=== PATIENT | male | born 1945 | race Caucasian/White ===

== ENCOUNTER 2018-03-12 13:00 | Inpatient (IN) | payer MEDICARE ==
[2018-03-11 11:44] LABS: BASOPHILS % (AUTO) 0.5 % (0-1); EOSINOPHILS # (AUTO) 0.1 X10'3 (0-0.9); EOSINOPHILS % (AUTO) 1.4 % (0-6); LYMPHOCYTES # (AUTO) 0.9 X10'3 (1.1-4.8); LYMPHOCYTES % (AUTO) 11.3 % (21-51); MEAN CORPUSCULAR HEMOGLOBIN 29.6 PG (27.0-31.0); MEAN CORPUSCULAR HGB CONC 33.7 % (33.0-36.5); MEAN CORPUSCULAR VOLUME 87.9 FL (78-98); MEAN PLATELET VOLUME 8.3 FL (7.4-10.4); MONOCYTES # (AUTO) 0.4 X10'3 (0-0.9); NEUTROPHILS # (AUTO) 6.7 X10'3 (1.8-7.7); NEUTROPHILS % (AUTO) 81.8 % (42-75); PRE OP HEMATOCRIT 43.1 % (42.0-52.0); PRE OP HEMOGLOBIN 14.5 g/dL (14.0-17.9); PRE OP PLATELET COUNT 299 X10'3 (140-440); RED BLOOD COUNT 4.91 X10'6 (4.70-6.10); RED CELL DISTRIBUTION WIDTH 15.8 % (11.5-14.5)
[2018-03-11 11:47] LABS: PRE OP INR 0.9 INR; PRE OP PROTIME 9.6 SECONDS (9.0-12.0)
[2018-03-11 11:52] LABS: ALKALINE PHOSPHATASE 67 IU/L (46-116); BLOOD UREA NITROGEN 19 MG/DL (7-18); BUN/CREATININE RATIO 17.1 (5.4-32.0); CALCIUM 8.8 MG/DL (8.5-10.1); CHLORIDE 106 MMOL/L (99-107); CREATININE 1.11 MG/DL (0.60-1.10); PRE OP ALT 20 U/L (30-65); PRE OP ANION GAP 12 (8-16); PRE OP AST 23 U/L (10-37); PRE OP BILIRUB, TOTAL 0.4 MG/DL (0.0-1.0); PRE OP GLUCOSE 104 MG/DL (70-104); PRE OP SODIUM 141 MMOL/L (135-145); TOTAL CARBON DIOXIDE 23.5 MMOL/L (24-32); TOTAL PROTEIN 8.1 G/DL (6.4-8.2); eGFR 65 ML/MIN
[~2018-03-12] VITALS: Ht 172.7 cm; Wt 64.2 kg
[~2018-03-12 13:00] MED LIST: ALBU8.5H8 IH; AMLO10TA PO; CHOL100044 PO; FEXO180T94 PO; LISI-600 PO; NAPR220C15 PO
[2018-03-14] VITALS (25 sets, daily range): BP systolic 80–139; BP diastolic 39–93
[2018-03-14] MEDS ORDERED: ceFAZolin 2gm in dextrose, iso 100 ML IV ONE (05:00)
[2018-03-14] MEDS ORDERED: ringers solution, lacted 1,000 ML IV SCH ×2 (05:00→10:40)
[2018-03-14] MEDS ORDERED: famotidine 20mg tablet PO ONE (05:30)
[2018-03-14] MEDS ORDERED: albuterol 2.5 MG/3 ML nebule NEB ONE (05:30)
[2018-03-14] MEDS ORDERED: LIDOcaine 1% (10mg/ml) 2ml vial ONE (05:53)
[2018-03-14] MEDS ORDERED: ROPIVAcaine 0.5% (5mg/ml) 30ml vial ONE (07:20)
[2018-03-14] MEDS ORDERED: fentaNYL /PF 50mcg/ml 5ml ampule ONE (07:23)
[2018-03-14] MEDS ORDERED: MIDAZolam 5mg/5ml vial ONE (07:23)
[2018-03-14] MEDS ORDERED: propofol inj 20 ML IV ONE (07:24)
[2018-03-14] MEDS ORDERED: rocuronium 10mg/ml inj IV ONE (07:24)
[2018-03-14] MEDS ORDERED: neostigmine methylsulfate 1 MG/ML 10ml vial ONE (07:43)
[2018-03-14] MEDS ORDERED: glycopyrrolate 0.2mg/ml inj ONE (07:43)
[2018-03-14] MEDS ORDERED: sevoflurane 250ml liquid IH ONE (07:43)
[2018-03-14] MEDS ORDERED: morphine sulfate /PF 0.5 MG/ML 10mL ampul ONE (09:26)
[2018-03-14] MEDS ORDERED: meperidine/PF 25mg/ml syringe IV PRN ×3 (10:40)
[2018-03-14] MEDS ORDERED: ondansetron/PF 4mg/2ml inj IV PRN (10:40)
[2018-03-14] MEDS ORDERED: morphine 4 MG/ML inj SYRINge IV PRN ×4 (10:40→10:50)
[2018-03-14] MEDS ORDERED: morphine/PF injection 20 MG, BUPIVAcaine 0.5% inj/PF 250 MG in normal saline 250ml IV s... EPI SCH (10:42)
[2018-03-14] MEDS ORDERED: naloxone 2mg/2ml inj 2 MG in normal saline 500ml IV soln 500 ML IV PRN (10:42)
[2018-03-14] MEDS ORDERED: CADD PCA waste documentation MC PRN (10:50)
[2018-03-14] MEDS ORDERED: metoclopramide 5 mg/ml inj IV PRN (10:50)
[2018-03-14] MEDS ORDERED: naloxone 0.4 mg/ml inj IV PRN (10:50)
[2018-03-14] MEDS ORDERED: ketorolac tromethamine 15mg/ml inj. IV PRN (10:50)
[2018-03-14 11:10] LABS: ABG BASE EXCESS -6.1 mmol/L (-2.0-3.0); ABG HCO3 19.3 mmol/L (22.0-26.0); ABG OXYGEN SATURATION 96.8 % (95-98); ABG PCO2 (T) 35.3 mmHg (35.0-48.0); ABG PH (T) 7.348 (7.350-7.450); ABG PO2 (T) 86.9 mmHg (83-108); FCOHb 0.3 % (0.5-1.5); FLOW 28 L/min; FMetHb 0.4 % (0.3-1.12); FO2Hb 96.1 % (94-100); PATIENT TEMPERATURE 35.3; TOTAL HEMOGLOBIN 13.5 G/dl (14.0-18.0)
[2018-03-14] MEDS: MORPHINE EPI SCH ×2 (11:18→12:26)
[2018-03-14] MEDS: [UNRECOGNIZED DRUG - OTHER] EPI SCH ×2 (11:18→12:26)
[2018-03-14] MEDS: BUPIVACAINE EPI SCH ×2 (11:18→12:26)
[2018-03-14] MEDS: NORepinephrine 8mg/ 250ml NS 250 ML IV SCH (11:51)
[2018-03-14] MEDS ORDERED: non-formulary drug (Albuterol Sulfate (Proair Hfa) 2 PUFFS) IH PRN (13:10)
[2018-03-14] MEDS: potassium Cl 20mEq in D5-NS 1,000 ML IV SCH (14:52)
[2018-03-14] MEDS ORDERED: magnesium 4gm in 100ml NS 100 ML IV ONE (14:55)
[2018-03-14] MEDS: ceFAZolin 1GM/D5W- ADD-VANTAGE 50 ML IV SCH (15:37)
[2018-03-14] MEDS ORDERED: CEFAZOLIN IV SCH (16:00)
[2018-03-14] MEDS ORDERED: D5W IV SCH (16:00)
[2018-03-14] MEDS ORDERED: DEXTROSE 5% IV SCH (16:00)
[2018-03-14] MEDS ORDERED: WATER IV SCH (16:00)
[2018-03-14] MEDS: ondansetron/PF 4mg/2ml inj IV PRN (18:35)
[2018-03-14] MEDS: albuterol 2.5 MG/3 ML nebule NEB PRN (22:45)
[2018-03-15] VITALS (24 sets, daily range): BP systolic 94–153; BP diastolic 59–78
[2018-03-15] MEDS: ceFAZolin 1GM/D5W- ADD-VANTAGE 50 ML IV SCH ×4 (01:10→23:48)
[2018-03-15 03:02] LABS: BASOPHILS % (AUTO) 0.1 % (0-1); EOSINOPHILS % (AUTO) 0 % (0-6); HEMATOCRIT 37.6 % (42.0-52.0); HEMOGLOBIN 12.5 g/dl (14.0-17.9); LYMPHOCYTES # (AUTO) 0.5 X10'3 (1.1-4.8); LYMPHOCYTES % (AUTO) 2.3 % (21-51); MEAN CORPUSCULAR HEMOGLOBIN 29.6 PG (27.0-31.0); MEAN CORPUSCULAR HGB CONC 33.2 % (33.0-36.5); MEAN CORPUSCULAR VOLUME 89.2 FL (78-98); MEAN PLATELET VOLUME 8.2 FL (7.4-10.4); MONOCYTES # (AUTO) 1.3 X10'3 (0-0.9); MONOCYTES % (AUTO) 5.6 % (2-12); NEUTROPHILS # (AUTO) 20.7 X10'3 (1.8-7.7); PLATELET COUNT 274 X10'3 (140-440); RED BLOOD COUNT 4.22 X10'6 (4.70-6.10); RED CELL DISTRIBUTION WIDTH 14.6 % (11.5-14.5); WHITE BLOOD COUNT 22.5 X10'3 (4.5-11.0)
[2018-03-15 03:32] LABS: ALANINE AMINOTRANSFERASE 16 U/L (12-78); ALBUMIN/GLOBULIN RATIO 0.9 (1.1-1.5); ALKALINE PHOSPHATASE 50 IU/L (46-116); ANION GAP 8 (8-16); ASPARTATE AMINO TRANSFERASE 30 U/L (10-37); BILIRUBIN,TOTAL 0.3 MG/DL (0.1-1.0); BLOOD UREA NITROGEN 22 MG/DL (7-18); BUN/CREATININE RATIO 18.8 (5.4-32.0); CALCIUM 8.3 MG/DL (8.5-10.1); CHLORIDE 108 MMOL/L (99-107); CREATININE 1.17 MG/DL (0.60-1.10); GLUCOSE 157 MG/DL (70-104); POTASSIUM 4.6 MMOL/L (3.5-5.1); SODIUM 139 MMOL/L (135-145); TOTAL CARBON DIOXIDE 22.8 MMOL/L (24-32); TOTAL PROTEIN 6.5 G/DL (6.4-8.2); eGFR 61 ML/MIN
[2018-03-15] MEDS: potassium Cl 20mEq in D5-NS 1,000 ML IV SCH ×2 (03:43→14:02)
[2018-03-15] MEDS: ondansetron/PF 4mg/2ml inj IV PRN ×2 (06:14→14:02)
[2018-03-15] MEDS: MORPHINE EPI SCH ×3 (07:22→14:04)
[2018-03-15] MEDS: [UNRECOGNIZED DRUG - OTHER] EPI SCH (07:22)
[2018-03-15] MEDS: BUPIVACAINE EPI SCH (07:22)
[2018-03-15] MEDS: albuterol 2.5 MG/3 ML nebule NEB PRN (08:18)
[2018-03-15] MEDS: metoclopramide 5 mg/ml inj IV SCH ×3 (08:35→20:10)
[2018-03-15] MEDS: magnesium oxide 400mg tablet PO SCH ×2 (08:35→20:10)
[2018-03-15] MEDS: NORMAL SALINE EPI SCH ×2 (10:38→14:04)
[2018-03-15] MEDS: NORepinephrine 8mg/ 250ml NS 250 ML IV SCH (14:10)
[2018-03-15] MEDS: albuterol 2.5 MG/3 ML nebule NEB SCH ×3 (16:36→23:27)
[2018-03-15] MEDS: lactobacillus rhamnosus 10,000 MMU CELLS/CAPSULE PO SCH (20:11)
[2018-03-16] VITALS (24 sets, daily range): BP systolic 106–165; BP diastolic 67–97
[2018-03-16] MEDS: metoclopramide 5 mg/ml inj IV SCH ×4 (01:54→20:10)
[2018-03-16 02:44] LABS: BASOPHILS % (AUTO) 0 % (0-1); EOSINOPHILS # (AUTO) 0.3 X10'3 (0-0.9); EOSINOPHILS % (AUTO) 1.6 % (0-6); HEMATOCRIT 32.5 % (42.0-52.0); HEMOGLOBIN 10.8 g/dl (14.0-17.9); LYMPHOCYTES % (AUTO) 4.9 % (21-51); MEAN CORPUSCULAR HEMOGLOBIN 29.8 PG (27.0-31.0); MEAN CORPUSCULAR HGB CONC 33.3 % (33.0-36.5); MEAN CORPUSCULAR VOLUME 89.7 FL (78-98); MEAN PLATELET VOLUME 8.3 FL (7.4-10.4); MONOCYTES # (AUTO) 1.4 X10'3 (0-0.9); MONOCYTES % (AUTO) 6.5 % (2-12); NEUTROPHILS # (AUTO) 18.1 X10'3 (1.8-7.7); PLATELET COUNT 242 X10'3 (140-440); RED BLOOD COUNT 3.62 X10'6 (4.70-6.10); RED CELL DISTRIBUTION WIDTH 15.7 % (11.5-14.5); WHITE BLOOD COUNT 20.9 X10'3 (4.5-11.0)
[2018-03-16 03:02] LABS: ALANINE AMINOTRANSFERASE 15 U/L (12-78); ALBUMIN 2.6 G/DL (3.4-5.0); ALBUMIN/GLOBULIN RATIO 0.7 (1.1-1.5); ALKALINE PHOSPHATASE 46 IU/L (46-116); ANION GAP 7 (8-16); ASPARTATE AMINO TRANSFERASE 34 U/L (10-37); BILIRUBIN,TOTAL 0.2 MG/DL (0.1-1.0); BLOOD UREA NITROGEN 25 MG/DL (7-18); BUN/CREATININE RATIO 21.6 (5.4-32.0); CALCIUM 8.1 MG/DL (8.5-10.1); CHLORIDE 109 MMOL/L (99-107); CREATININE 1.16 MG/DL (0.60-1.10); GLUCOSE 108 MG/DL (70-104); POTASSIUM 4.2 MMOL/L (3.5-5.1); SODIUM 140 MMOL/L (135-145); TOTAL CARBON DIOXIDE 24.2 MMOL/L (24-32); TOTAL PROTEIN 6.1 G/DL (6.4-8.2); eGFR 62 ML/MIN
[2018-03-16] MEDS: albuterol 2.5 MG/3 ML nebule NEB SCH ×6 (03:53→23:18)
[2018-03-16] MEDS: magnesium oxide 400mg tablet PO SCH ×2 (08:27→20:10)
[2018-03-16] MEDS: lactobacillus rhamnosus 10,000 MMU CELLS/CAPSULE PO SCH ×2 (08:27→20:10)
[2018-03-16] MEDS: ceFAZolin 1GM/D5W- ADD-VANTAGE 50 ML IV SCH ×3 (08:27→23:52)
[2018-03-16] MEDS: potassium Cl 20mEq in D5-NS 1,000 ML IV SCH ×2 (10:04→11:53)
[2018-03-16] MEDS ORDERED: amiodarone 150mg/dext, iso-os 100 ML IV ONE (11:35)
[2018-03-16] MEDS: amiodarone/D5 360MG/200ML BAG 200 ML IV SCH ×3 (11:55→23:43)
[2018-03-16] MEDS: NORepinephrine 8mg/ 250ml NS 250 ML IV SCH (16:50)
[2018-03-17] VITALS (23 sets, daily range): BP systolic 119–172; BP diastolic 76–102
[2018-03-17] MEDS: metoclopramide 5 mg/ml inj IV SCH ×4 (02:11→19:53)
[2018-03-17 02:55] LABS: BASOPHILS % (AUTO) 0.1 % (0-1); EOSINOPHILS # (AUTO) 0.1 X10'3 (0-0.9); EOSINOPHILS % (AUTO) 0.9 % (0-6); HEMATOCRIT 31.9 % (42.0-52.0); HEMOGLOBIN 10.9 g/dl (14.0-17.9); LYMPHOCYTES # (AUTO) 0.8 X10'3 (1.1-4.8); LYMPHOCYTES % (AUTO) 4.8 % (21-51); MEAN CORPUSCULAR HEMOGLOBIN 30.1 PG (27.0-31.0); MEAN CORPUSCULAR HGB CONC 34.2 % (33.0-36.5); MEAN CORPUSCULAR VOLUME 88.1 FL (78-98); MEAN PLATELET VOLUME 8.4 FL (7.4-10.4); MONOCYTES # (AUTO) 1.4 X10'3 (0-0.9); MONOCYTES % (AUTO) 8.5 % (2-12); NEUTROPHILS # (AUTO) 14.1 X10'3 (1.8-7.7); NEUTROPHILS % (AUTO) 85.7 % (42-75); PLATELET COUNT 233 X10'3 (140-440); RED BLOOD COUNT 3.62 X10'6 (4.70-6.10); RED CELL DISTRIBUTION WIDTH 15.5 % (11.5-14.5); WHITE BLOOD COUNT 16.4 X10'3 (4.5-11.0)
[2018-03-17 03:10] LABS: ALANINE AMINOTRANSFERASE 14 U/L (12-78); ALBUMIN 2.4 G/DL (3.4-5.0); ALBUMIN/GLOBULIN RATIO 0.6 (1.1-1.5); ALKALINE PHOSPHATASE 49 IU/L (46-116); ANION GAP 10 (8-16); ASPARTATE AMINO TRANSFERASE 32 U/L (10-37); BILIRUBIN,TOTAL 0.3 MG/DL (0.1-1.0); BLOOD UREA NITROGEN 15 MG/DL (7-18); BUN/CREATININE RATIO 15.3 (5.4-32.0); CALCIUM 8.1 MG/DL (8.5-10.1); CHLORIDE 104 MMOL/L (99-107); CREATININE 0.98 MG/DL (0.60-1.10); GLUCOSE 108 MG/DL (70-104); POTASSIUM 3.5 MMOL/L (3.5-5.1); SODIUM 138 MMOL/L (135-145); TOTAL CARBON DIOXIDE 24.4 MMOL/L (24-32); TOTAL PROTEIN 6.1 G/DL (6.4-8.2); eGFR 75 ML/MIN
[2018-03-17] MEDS: albuterol 2.5 MG/3 ML nebule NEB SCH ×6 (03:11→23:31)
[2018-03-17] MEDS: amiodarone/D5 360MG/200ML BAG 200 ML IV SCH ×4 (05:25→22:59)
[2018-03-17] MEDS: MORPHINE EPI SCH (06:13)
[2018-03-17] MEDS: NORMAL SALINE EPI SCH (06:13)
[2018-03-17] MEDS: ceFAZolin 1GM/D5W- ADD-VANTAGE 50 ML IV SCH ×2 (07:43→16:04)
[2018-03-17] MEDS: lactobacillus rhamnosus 10,000 MMU CELLS/CAPSULE PO SCH ×2 (07:46→19:52)
[2018-03-17] MEDS: magnesium oxide 400mg tablet PO SCH ×2 (07:46→19:52)
[2018-03-17] MEDS ORDERED: acetaminophen 325mg tablet PO PRN (11:55)
[2018-03-17] MEDS: Protein Shake (high protein) 240ml (8oz) cup PO SCH ×2 (13:00→18:00)
[2018-03-17] MEDS: HYDROcodone/acetaminophen 10/325mg tab PO PRN ×2 (13:42→19:54)
[2018-03-17] MEDS: amiodarone 200mg tablet PO SCH ×2 (14:56→19:53)
[2018-03-17] MEDS: NORepinephrine 8mg/ 250ml NS 250 ML IV SCH (19:30)
[2018-03-18] VITALS (25 sets, daily range): BP systolic 108–186; BP diastolic 79–111
[2018-03-18] MEDS: ceFAZolin 1GM/D5W- ADD-VANTAGE 50 ML IV SCH ×2 (00:08→07:38)
[2018-03-18] MEDS: metoclopramide 5 mg/ml inj IV SCH ×4 (02:30→21:07)
[2018-03-18] MEDS: HYDROcodone/acetaminophen 10/325mg tab PO PRN ×3 (02:41→18:34)
[2018-03-18] MEDS: potassium Cl 20mEq in D5-NS 1,000 ML IV SCH (02:41)
[2018-03-18 03:16] LABS: BASOPHILS % (AUTO) 0.1 % (0-1); EOSINOPHILS # (AUTO) 0.2 X10'3 (0-0.9); EOSINOPHILS % (AUTO) 1.2 % (0-6); HEMATOCRIT 29.3 % (42.0-52.0); HEMOGLOBIN 9.8 g/dl (14.0-17.9); LYMPHOCYTES # (AUTO) 1.1 X10'3 (1.1-4.8); LYMPHOCYTES % (AUTO) 7.9 % (21-51); MEAN CORPUSCULAR HEMOGLOBIN 29.5 PG (27.0-31.0); MEAN CORPUSCULAR HGB CONC 33.4 % (33.0-36.5); MEAN CORPUSCULAR VOLUME 88.4 FL (78-98); MEAN PLATELET VOLUME 8.4 FL (7.4-10.4); MONOCYTES # (AUTO) 1.3 X10'3 (0-0.9); MONOCYTES % (AUTO) 9.8 % (2-12); NEUTROPHILS # (AUTO) 10.9 X10'3 (1.8-7.7); PLATELET COUNT 236 X10'3 (140-440); RED BLOOD COUNT 3.31 X10'6 (4.70-6.10); RED CELL DISTRIBUTION WIDTH 15.4 % (11.5-14.5); WHITE BLOOD COUNT 13.4 X10'3 (4.5-11.0)
[2018-03-18 03:40] LABS: ALANINE AMINOTRANSFERASE 13 U/L (12-78); ALBUMIN 2.1 G/DL (3.4-5.0); ALBUMIN/GLOBULIN RATIO 0.6 (1.1-1.5); ALKALINE PHOSPHATASE 49 IU/L (46-116); ANION GAP 9 (8-16); ASPARTATE AMINO TRANSFERASE 28 U/L (10-37); BILIRUBIN,TOTAL 0.4 MG/DL (0.1-1.0); BLOOD UREA NITROGEN 11 MG/DL (7-18); CALCIUM 7.8 MG/DL (8.5-10.1); CHLORIDE 105 MMOL/L (99-107); GLUCOSE 105 MG/DL (70-104); POTASSIUM 3.6 MMOL/L (3.5-5.1); SODIUM 139 MMOL/L (135-145); TOTAL CARBON DIOXIDE 24.9 MMOL/L (24-32); TOTAL PROTEIN 5.8 G/DL (6.4-8.2); eGFR 74 ML/MIN
[2018-03-18] MEDS: albuterol 2.5 MG/3 ML nebule NEB SCH ×5 (03:51→19:41)
[2018-03-18] MEDS: amiodarone 200mg tablet PO SCH ×2 (07:25→20:00)
[2018-03-18] MEDS: lactobacillus rhamnosus 10,000 MMU CELLS/CAPSULE PO SCH ×2 (07:38→21:07)
[2018-03-18] MEDS: magnesium oxide 400mg tablet PO SCH ×2 (07:38→21:08)
[2018-03-18] MEDS: Protein Shake (high protein) 240ml (8oz) cup PO SCH ×3 (08:00→18:31)
[2018-03-18] MEDS: amiodarone/D5 360MG/200ML BAG 200 ML IV SCH ×3 (09:59→22:20)
[2018-03-18] MEDS ORDERED: amiodarone/D5 360MG/200ML BAG 200 ML IV SCH (14:00)
[2018-03-18] MEDS ORDERED: potassium Cl 20mEq/100mL bag 100 ML IV PRN (16:00)
[2018-03-18] MEDS ORDERED: magnesium 4gm in 100ml NS 100 ML IV PRN (16:00)
[2018-03-18] MEDS: potassium Cl 20mEq/100mL bag 100 ML IV PRN (16:24)
[2018-03-18] MEDS: ondansetron/PF 4mg/2ml inj IV PRN (21:08)
[2018-03-19] VITALS (16 sets, daily range): BP systolic 108–166; BP diastolic 71–95
[2018-03-19] MEDS: albuterol 2.5 MG/3 ML nebule NEB SCH ×7 (00:02→23:32)
[2018-03-19] MEDS: HYDROcodone/acetaminophen 10/325mg tab PO PRN ×5 (00:59→20:50)
[2018-03-19] MEDS: metoclopramide 5 mg/ml inj IV SCH ×4 (02:12→20:48)
[2018-03-19 03:27] LABS: BASOPHILS % (AUTO) 0.2 % (0-1); EOSINOPHILS # (AUTO) 0.1 X10'3 (0-0.9); EOSINOPHILS % (AUTO) 0.5 % (0-6); HEMATOCRIT 28.7 % (42.0-52.0); HEMOGLOBIN 9.7 g/dl (14.0-17.9); LYMPHOCYTES # (AUTO) 0.8 X10'3 (1.1-4.8); LYMPHOCYTES % (AUTO) 5.4 % (21-51); MEAN CORPUSCULAR HEMOGLOBIN 29.7 PG (27.0-31.0); MEAN CORPUSCULAR HGB CONC 33.6 % (33.0-36.5); MEAN CORPUSCULAR VOLUME 88.2 FL (78-98); MEAN PLATELET VOLUME 8.4 FL (7.4-10.4); MONOCYTES # (AUTO) 1.1 X10'3 (0-0.9); MONOCYTES % (AUTO) 7.2 % (2-12); NEUTROPHILS # (AUTO) 13.3 X10'3 (1.8-7.7); NEUTROPHILS % (AUTO) 86.7 % (42-75); PLATELET COUNT 269 X10'3 (140-440); RED BLOOD COUNT 3.26 X10'6 (4.70-6.10); RED CELL DISTRIBUTION WIDTH 15.2 % (11.5-14.5); WHITE BLOOD COUNT 15.3 X10'3 (4.5-11.0)
[2018-03-19 03:39] LABS: ALANINE AMINOTRANSFERASE 14 U/L (12-78); ALBUMIN 1.9 G/DL (3.4-5.0); ALBUMIN/GLOBULIN RATIO 0.5 (1.1-1.5); ALKALINE PHOSPHATASE 62 IU/L (46-116); ANION GAP 7 (8-16); ASPARTATE AMINO TRANSFERASE 25 U/L (10-37); BILIRUBIN,TOTAL 0.4 MG/DL (0.1-1.0); BLOOD UREA NITROGEN 10 MG/DL (7-18); BUN/CREATININE RATIO 10.3 (5.4-32.0); CALCIUM 8.5 MG/DL (8.5-10.1); CHLORIDE 101 MMOL/L (99-107); CREATININE 0.97 MG/DL (0.60-1.10); GLUCOSE 116 MG/DL (70-104); MAGNESIUM 3.4 MG/DL (1.5-2.4); POTASSIUM 3.5 MMOL/L (3.5-5.1); SODIUM 135 MMOL/L (135-145); TOTAL CARBON DIOXIDE 27.1 MMOL/L (24-32); TOTAL PROTEIN 5.8 G/DL (6.4-8.2); eGFR 76 ML/MIN
[2018-03-19] MEDS: potassium Cl 20mEq/100mL bag 100 ML IV PRN ×3 (03:51→15:22)
[2018-03-19] MEDS: potassium Cl 20mEq in D5-NS 1,000 ML IV SCH (03:51)
[2018-03-19] MEDS: amiodarone/D5 360MG/200ML BAG 200 ML IV SCH ×3 (04:26→12:23)
[2018-03-19] MEDS: lactobacillus rhamnosus 10,000 MMU CELLS/CAPSULE PO SCH ×2 (07:59→20:47)
[2018-03-19] MEDS: magnesium oxide 400mg tablet PO SCH ×2 (07:59→20:00)
[2018-03-19] MEDS: Protein Shake (high protein) 240ml (8oz) cup PO SCH ×3 (08:00→18:00)
[2018-03-19] MEDS: amiodarone 200mg tablet PO SCH ×2 (13:33→20:48)
[2018-03-19] MEDS: magnesium hydroxide 30ml (MOM) UD suspension PO SCH ×2 (13:33→20:49)
[2018-03-20] VITALS (23 sets, daily range): BP systolic 104–174; BP diastolic 61–94
[2018-03-20] MEDS: HYDROcodone/acetaminophen 10/325mg tab PO PRN ×5 (02:54→23:27)
[2018-03-20] MEDS: metoclopramide 5 mg/ml inj IV SCH ×4 (02:54→19:36)
[2018-03-20] MEDS: albuterol 2.5 MG/3 ML nebule NEB SCH ×6 (03:33→23:20)
[2018-03-20] MEDS: amiodarone 200mg tablet PO SCH ×2 (07:32→19:34)
[2018-03-20] MEDS: magnesium oxide 400mg tablet PO SCH ×2 (07:32→19:35)
[2018-03-20] MEDS: lactobacillus rhamnosus 10,000 MMU CELLS/CAPSULE PO SCH ×2 (07:32→19:35)
[2018-03-20] MEDS: magnesium hydroxide 30ml (MOM) UD suspension PO SCH ×2 (07:32→19:36)
[2018-03-20] MEDS: enoxaparin 40mg/0.4ml syringe SUBCUT SCH (07:33)
[2018-03-20] MEDS: Protein Shake (high protein) 240ml (8oz) cup PO SCH ×3 (07:34→18:00)
[2018-03-20] MEDS: ondansetron/PF 4mg/2ml inj IV PRN (11:03)
[2018-03-20] MEDS ORDERED: amiodarone 150mg/dext, iso-os 100 ML IV ONE (20:15)
[2018-03-20] MEDS: amiodarone/D5 360MG/200ML BAG 200 ML IV SCH (21:14)
[2018-03-21] VITALS (23 sets, daily range): BP systolic 99–162; BP diastolic 63–97
[2018-03-21] MEDS: HYDROcodone/acetaminophen 10/325mg tab PO PRN ×5 (03:17→23:56)
[2018-03-21] MEDS: metoclopramide 5 mg/ml inj IV SCH ×4 (03:17→19:54)
[2018-03-21] MEDS: amiodarone/D5 360MG/200ML BAG 200 ML IV SCH ×4 (03:35→20:31)
[2018-03-21] MEDS: albuterol 2.5 MG/3 ML nebule NEB SCH ×6 (04:06→23:38)
[2018-03-21] MEDS: lactobacillus rhamnosus 10,000 MMU CELLS/CAPSULE PO SCH ×2 (07:17→19:54)
[2018-03-21] MEDS: amiodarone 200mg tablet PO SCH ×2 (07:17→19:54)
[2018-03-21] MEDS: magnesium oxide 400mg tablet PO SCH ×2 (07:17→19:55)
[2018-03-21] MEDS: magnesium hydroxide 30ml (MOM) UD suspension PO SCH ×3 (07:23→19:57)
[2018-03-21] MEDS: enoxaparin 40mg/0.4ml syringe SUBCUT SCH (08:00)
[2018-03-21] MEDS: Protein Shake (high protein) 240ml (8oz) cup PO SCH ×4 (08:00→19:54)
[2018-03-21] MEDS: diltiazem 30mg tablet PO SCH ×3 (10:27→19:54)
[2018-03-22] VITALS (20 sets, daily range): BP systolic 110–154; BP diastolic 61–90
[2018-03-22] MEDS: diltiazem 30mg tablet PO SCH ×4 (02:12→21:37)
[2018-03-22] MEDS: metoclopramide 5 mg/ml inj IV SCH ×4 (02:12→21:26)
[2018-03-22] MEDS: amiodarone/D5 360MG/200ML BAG 200 ML IV SCH (02:16)
[2018-03-22] MEDS: albuterol 2.5 MG/3 ML nebule NEB SCH ×6 (04:01→23:12)
[2018-03-22 05:35] LABS: BASOPHILS % (AUTO) 0 % (0-1); EOSINOPHILS # (AUTO) 0.5 X10'3 (0-0.9); EOSINOPHILS % (AUTO) 2.3 % (0-6); HEMATOCRIT 31.2 % (42.0-52.0); HEMOGLOBIN 10.5 g/dl (14.0-17.9); LYMPHOCYTES # (AUTO) 0.8 X10'3 (1.1-4.8); LYMPHOCYTES % (AUTO) 4.3 % (21-51); MEAN CORPUSCULAR HEMOGLOBIN 29.8 PG (27.0-31.0); MEAN CORPUSCULAR HGB CONC 33.7 % (33.0-36.5); MEAN CORPUSCULAR VOLUME 88.4 FL (78-98); MEAN PLATELET VOLUME 7.3 FL (7.4-10.4); MONOCYTES # (AUTO) 1.2 X10'3 (0-0.9); MONOCYTES % (AUTO) 6.2 % (2-12); NEUTROPHILS # (AUTO) 17.3 X10'3 (1.8-7.7); NEUTROPHILS % (AUTO) 87.2 % (42-75); PLATELET COUNT 476 X10'3 (140-440); RED BLOOD COUNT 3.53 X10'6 (4.70-6.10); RED CELL DISTRIBUTION WIDTH 14.9 % (11.5-14.5); WHITE BLOOD COUNT 19.9 X10'3 (4.5-11.0)
[2018-03-22 05:50] LABS: ALBUMIN 1.9 G/DL (3.4-5.0); ANION GAP 8 (8-16); BLOOD UREA NITROGEN 14 MG/DL (7-18); BUN/CREATININE RATIO 12.2 (5.4-32.0); CALCIUM 8.8 MG/DL (8.5-10.1); CHLORIDE 99 MMOL/L (99-107); CREATININE 1.15 MG/DL (0.60-1.10); GLUCOSE 98 MG/DL (70-104); MAGNESIUM 2.3 MG/DL (1.5-2.4); POTASSIUM 4.2 MMOL/L (3.5-5.1); SODIUM 137 MMOL/L (135-145); TOTAL CARBON DIOXIDE 30.1 MMOL/L (24-32); eGFR 63 ML/MIN
[2018-03-22] MEDS: HYDROcodone/acetaminophen 10/325mg tab PO PRN ×3 (06:53→17:11)
[2018-03-22] MEDS: Protein Shake (high protein) 240ml (8oz) cup PO SCH ×3 (07:40→18:04)
[2018-03-22] MEDS: magnesium hydroxide 30ml (MOM) UD suspension PO SCH ×2 (08:00→21:31)
[2018-03-22] MEDS: lactobacillus rhamnosus 10,000 MMU CELLS/CAPSULE PO SCH ×2 (08:20→21:37)
[2018-03-22] MEDS: enoxaparin 40mg/0.4ml syringe SUBCUT SCH (08:20)
[2018-03-22] MEDS: magnesium oxide 400mg tablet PO SCH (08:21)
[2018-03-22] MEDS: amiodarone 200mg tablet PO SCH ×2 (08:23→21:37)
[2018-03-22] MEDS: ondansetron/PF 4mg/2ml inj IV PRN (11:58)
[2018-03-22] MEDS: piperacillin/tazo 3.375gm/50ml 50 ML IV SCH (16:26)
[2018-03-23] MEDS: piperacillin/tazo 3.375gm/50ml 50 ML IV SCH ×4 (00:30→23:37)
[2018-03-23 02:00] VITALS: BP 127/68
[2018-03-23] MEDS: metoclopramide 5 mg/ml inj IV SCH ×4 (02:13→19:20)
[2018-03-23] MEDS: diltiazem 30mg tablet PO SCH ×4 (02:16→19:19)
[2018-03-23] MEDS: albuterol 2.5 MG/3 ML nebule NEB SCH ×6 (02:40→23:14)
[2018-03-23] MEDS: HYDROcodone/acetaminophen 10/325mg tab PO PRN ×3 (05:55→23:37)
[2018-03-23 06:00] VITALS: BP 134/68
[2018-03-23] MEDS: Protein Shake (high protein) 240ml (8oz) cup PO SCH ×3 (07:41→18:25)
[2018-03-23] MEDS: lactobacillus rhamnosus 10,000 MMU CELLS/CAPSULE PO SCH ×2 (07:43→19:19)
[2018-03-23] MEDS: amiodarone 200mg tablet PO SCH ×2 (07:44→19:19)
[2018-03-23] MEDS: enoxaparin 40mg/0.4ml syringe SUBCUT SCH (07:45)
[2018-03-23] MEDS: magnesium hydroxide 30ml (MOM) UD suspension PO SCH ×2 (07:45→19:22)
[2018-03-23 11:00] VITALS: BP 120/72
[2018-03-23 15:00] VITALS: BP 128/71
[2018-03-23 18:00] VITALS: BP 145/78
[2018-03-23 22:00] VITALS: BP 128/76
[2018-03-24] MEDS: metoclopramide 5 mg/ml inj IV SCH ×4 (01:41→19:38)
[2018-03-24] MEDS: diltiazem 30mg tablet PO SCH ×4 (01:41→19:38)
[2018-03-24 02:00] VITALS: BP 139/75
[2018-03-24] MEDS: albuterol 2.5 MG/3 ML nebule NEB SCH ×6 (02:53→22:55)
[2018-03-24 05:32] LABS: BASOPHILS % (AUTO) 0.1 % (0-1); EOSINOPHILS # (AUTO) 0.4 X10'3 (0-0.9); HEMOGLOBIN 9.4 g/dl (14.0-17.9); LYMPHOCYTES # (AUTO) 0.8 X10'3 (1.1-4.8); LYMPHOCYTES % (AUTO) 5.7 % (21-51); MEAN CORPUSCULAR HEMOGLOBIN 29.3 PG (27.0-31.0); MEAN CORPUSCULAR HGB CONC 33.6 % (33.0-36.5); MEAN CORPUSCULAR VOLUME 87.2 FL (78-98); MEAN PLATELET VOLUME 7.2 FL (7.4-10.4); MONOCYTES # (AUTO) 1.2 X10'3 (0-0.9); MONOCYTES % (AUTO) 8.4 % (2-12); NEUTROPHILS # (AUTO) 11.4 X10'3 (1.8-7.7); NEUTROPHILS % (AUTO) 82.8 % (42-75); PLATELET COUNT 588 X10'3 (140-440); RED BLOOD COUNT 3.21 X10'6 (4.70-6.10); RED CELL DISTRIBUTION WIDTH 15.1 % (11.5-14.5); WHITE BLOOD COUNT 13.7 X10'3 (4.5-11.0)
[2018-03-24 06:26] LABS: ALANINE AMINOTRANSFERASE 22 U/L (12-78); ALBUMIN 1.7 G/DL (3.4-5.0); ALBUMIN/GLOBULIN RATIO 0.4 (1.1-1.5); ALKALINE PHOSPHATASE 153 IU/L (46-116); ANION GAP 9 (8-16); ASPARTATE AMINO TRANSFERASE 26 U/L (10-37); BILIRUBIN,TOTAL 0.4 MG/DL (0.1-1.0); BLOOD UREA NITROGEN 13 MG/DL (7-18); BUN/CREATININE RATIO 10.2 (5.4-32.0); CALCIUM 8.5 MG/DL (8.5-10.1); CHLORIDE 100 MMOL/L (99-107); CREATININE 1.28 MG/DL (0.60-1.10); GLUCOSE 102 MG/DL (70-104); POTASSIUM 3.7 MMOL/L (3.5-5.1); SODIUM 137 MMOL/L (135-145); TOTAL CARBON DIOXIDE 28.4 MMOL/L (24-32); TOTAL PROTEIN 6.4 G/DL (6.4-8.2); eGFR 55 ML/MIN
[2018-03-24 06:59] VITALS: BP 154/82
[2018-03-24] MEDS: piperacillin/tazo 3.375gm/50ml 50 ML IV SCH ×2 (07:29→15:13)
[2018-03-24] MEDS: amiodarone 200mg tablet PO SCH ×2 (07:30→19:38)
[2018-03-24] MEDS: lactobacillus rhamnosus 10,000 MMU CELLS/CAPSULE PO SCH ×2 (07:30→19:38)
[2018-03-24] MEDS: enoxaparin 40mg/0.4ml syringe SUBCUT SCH (07:31)
[2018-03-24] MEDS: Protein Shake (high protein) 240ml (8oz) cup PO SCH ×3 (07:33→17:52)
[2018-03-24] MEDS: magnesium hydroxide 30ml (MOM) UD suspension PO SCH ×2 (07:35→19:38)
[2018-03-24 11:52] VITALS: BP 130/73
[2018-03-24 16:00] VITALS: BP 145/73
[2018-03-24 19:00] VITALS: BP 154/60
[2018-03-24 23:00] VITALS: BP 141/76
[2018-03-25] MEDS: diltiazem 30mg tablet PO SCH ×3 (01:13→15:28)
[2018-03-25] MEDS: metoclopramide 5 mg/ml inj IV SCH ×6 (01:13→21:14)
[2018-03-25] MEDS: albuterol 2.5 MG/3 ML nebule NEB SCH ×6 (03:35→23:11)
[2018-03-25 06:00] VITALS: BP 149/85
[2018-03-25] MEDS: Protein Shake (high protein) 240ml (8oz) cup PO SCH ×2 (08:00→18:00)
[2018-03-25] MEDS: magnesium hydroxide 30ml (MOM) UD suspension PO SCH ×2 (08:30→20:00)
[2018-03-25] MEDS: amiodarone 200mg tablet PO SCH (08:31)
[2018-03-25] MEDS: lactobacillus rhamnosus 10,000 MMU CELLS/CAPSULE PO SCH ×2 (08:31→21:15)
[2018-03-25] MEDS: piperacillin/tazo 3.375gm/50ml 50 ML IV SCH ×5 (08:31→16:42)
[2018-03-25] MEDS: enoxaparin 40mg/0.4ml syringe SUBCUT SCH (08:34)
[2018-03-25 11:00] VITALS: BP 119/74
[2018-03-25 15:00] VITALS: BP 131/81
[2018-03-25] MEDS: diltiazem CD 120mg capsule (once-daily) PO SCH (16:48)
[2018-03-25 19:00] VITALS: BP 137/83
[2018-03-25] MEDS: apixaban 5mg tablet PO SCH (21:15)
[2018-03-25 23:00] VITALS: BP 123/63
[2018-03-26] MEDS: metoclopramide 5 mg/ml inj IV SCH ×2 (02:15→07:57)
[2018-03-26] MEDS: albuterol 2.5 MG/3 ML nebule NEB SCH ×3 (02:51→12:00)
[2018-03-26 03:00] VITALS: BP 132/79
[2018-03-26 05:43] LABS: BASOPHILS % (AUTO) 0.1 % (0-1); EOSINOPHILS # (AUTO) 0.3 X10'3 (0-0.9); EOSINOPHILS % (AUTO) 1.8 % (0-6); HEMATOCRIT 29.1 % (42.0-52.0); HEMOGLOBIN 9.7 g/dl (14.0-17.9); LYMPHOCYTES # (AUTO) 0.9 X10'3 (1.1-4.8); LYMPHOCYTES % (AUTO) 5.3 % (21-51); MEAN CORPUSCULAR HEMOGLOBIN 29.5 PG (27.0-31.0); MEAN CORPUSCULAR HGB CONC 33.5 % (33.0-36.5); MEAN CORPUSCULAR VOLUME 88.1 FL (78-98); MONOCYTES # (AUTO) 0.9 X10'3 (0-0.9); MONOCYTES % (AUTO) 5.5 % (2-12); NEUTROPHILS # (AUTO) 15.1 X10'3 (1.8-7.7); NEUTROPHILS % (AUTO) 87.3 % (42-75); PLATELET COUNT 728 X10'3 (140-440); WHITE BLOOD COUNT 17.3 X10'3 (4.5-11.0)
[2018-03-26 06:04] LABS: ALANINE AMINOTRANSFERASE 29 U/L (12-78); ALBUMIN 1.7 G/DL (3.4-5.0); ALBUMIN/GLOBULIN RATIO 0.4 (1.1-1.5); ALKALINE PHOSPHATASE 147 IU/L (46-116); ANION GAP 9 (8-16); ASPARTATE AMINO TRANSFERASE 27 U/L (10-37); BILIRUBIN,TOTAL 0.4 MG/DL (0.1-1.0); BLOOD UREA NITROGEN 12 MG/DL (7-18); BUN/CREATININE RATIO 9.2 (5.4-32.0); CALCIUM 8.6 MG/DL (8.5-10.1); CHLORIDE 101 MMOL/L (99-107); GLUCOSE 101 MG/DL (70-104); PHOSPHORUS 3.6 MG/DL (2.3-4.5); POTASSIUM 4.1 MMOL/L (3.5-5.1); SODIUM 135 MMOL/L (135-145); TOTAL CARBON DIOXIDE 25.2 MMOL/L (24-32); TOTAL PROTEIN 6.4 G/DL (6.4-8.2); eGFR 54 ML/MIN
[2018-03-26 06:42] VITALS: BP 144/79
[2018-03-26] MEDS: apixaban 5mg tablet PO SCH (07:57)
[2018-03-26] MEDS: Protein Shake (high protein) 240ml (8oz) cup PO SCH (07:57)
[2018-03-26] MEDS: lactobacillus rhamnosus 10,000 MMU CELLS/CAPSULE PO SCH (07:57)
[2018-03-26] MEDS: diltiazem CD 120mg capsule (once-daily) PO SCH (07:57)
[2018-03-26] MEDS: magnesium hydroxide 30ml (MOM) UD suspension PO SCH (07:58)
[2018-03-26] MEDS: piperacillin/tazo 3.375gm/50ml 50 ML IV SCH (08:00)
[2018-03-26 10:01] LABS: BASOPHILS % (AUTO) 0.1 % (0-1); EOSINOPHILS # (AUTO) 0.4 X10'3 (0-0.9); EOSINOPHILS % (AUTO) 2.8 % (0-6); HEMATOCRIT 28.9 % (42.0-52.0); HEMOGLOBIN 9.7 g/dl (14.0-17.9); LYMPHOCYTES # (AUTO) 0.7 X10'3 (1.1-4.8); LYMPHOCYTES % (AUTO) 4.8 % (21-51); MEAN CORPUSCULAR HEMOGLOBIN 29.5 PG (27.0-31.0); MEAN CORPUSCULAR HGB CONC 33.7 % (33.0-36.5); MEAN CORPUSCULAR VOLUME 87.6 FL (78-98); MEAN PLATELET VOLUME 6.8 FL (7.4-10.4); MONOCYTES % (AUTO) 6.5 % (2-12); NEUTROPHILS # (AUTO) 13.4 X10'3 (1.8-7.7); NEUTROPHILS % (AUTO) 85.8 % (42-75); PLATELET COUNT 788 X10'3 (140-440); RED BLOOD COUNT 3.29 X10'6 (4.70-6.10); RED CELL DISTRIBUTION WIDTH 14.7 % (11.5-14.5); WHITE BLOOD COUNT 15.6 X10'3 (4.5-11.0)
[2018-03-26 10:19] LABS: TOTAL CELLS COUNTED 100
[2018-03-26 10:20] LABS: GIANT PLATELET FEW; LARGE PLATELETS FEW; PLATELET ESTIMATE INCREASED
[2018-03-26] MEDS ORDERED: AMOX-115 PO (11:00)
[2018-03-26] MEDS ORDERED: CARCD120C PO (11:00)
[2018-03-26] MEDS ORDERED: AZIT500T5 PO (11:00)
[2018-03-26] MEDS ORDERED: APIX5TAB3 PO (11:00)
== END 2018-03-26 13:58 | disposition home or self-care (01) | DRG 163 ==
LOC: PAS IN 03-14 05:31 → CICU 2S 03-14 12:10 → EDSTATUS 03-14 15:30 → ICU 2S 03-14 17:15 → PCU 3S 03-22 19:56
PROVIDERS: ADMIT Surgery; ATTEND Surgery
PROC: 0BJ08ZZ Inspection of Tracheobronchial Tree, Via Natural or Artificial Opening Endoscopic (ICD-10-PCS; 2018-03-14)
PROC: 0B5N0ZZ Destruction of Right Pleura, Open Approach (ICD-10-PCS; 2018-03-14)
PROC: 07T70ZZ Resection of Thorax Lymphatic, Open Approach (ICD-10-PCS; 2018-03-14)
PROC: 0W9900Z Drainage of Right Pleural Cavity with Drainage Device, Open Approach (ICD-10-PCS; 2018-03-14)
PROC: 02HV33Z Insertion of Infusion Device into Superior Vena Cava, Percutaneous Approach (ICD-10-PCS; 2018-03-14)
PROC: 0BTF0ZZ Resection of Right Lower Lung Lobe, Open Approach (ICD-10-PCS; principal; 2018-03-14 07:43)
DX: C34.31 Malignant neoplasm of lower lobe, right bronchus or lung (principal); J18.9 Pneumonia, unspecified organism; J44.0 Chronic obstructive pulmonary disease with (acute) lower respiratory infection; I47.1 Supraventricular tachycardia; I10 Essential (primary) hypertension; I48.91 Unspecified atrial fibrillation; Z79.01 Long term (current) use of anticoagulants; Z79.899 Other long term (current) drug therapy; Z87.891 Personal history of nicotine dependence; Z80.52 Family history of malignant neoplasm of bladder; Z82.49 Family history of ischemic heart disease and other diseases of the circulatory system; Z82.61 Family history of arthritis; Z84.89 Family history of other specified conditions
CPT/HCPCS: 36415; 36600; 71045; 80048; 80053; 82803; 82948; 83735; 84100; 84443; 85007; 85018; 85025; 85610; 85730; 86885; 86900; 86901; 86920; 87070; 87077; 88305; 88309; 93306; 94640; 94668; 94760; 97110; 97116; 97162; 97530; A6213; A6251; A6255; A6257; A6449; A7000; A7048; C1758; C9250; J0282; J0690; J1650; J1885; J2250; J2274; J2405; J2543; J2704; J2710; J2765; J2795; J3010; J3475; J3480; J3490; J7030; J7060; J7120

== ENCOUNTER 2018-03-31 18:59 | Inpatient (IN) | payer MEDICARE ==
[~2018-03-31] VITALS: Ht 172.7 cm; Wt 60.0 kg
[~2018-03-31 18:59] MED LIST changes: -AMLO10TA PO; +AMOX-115 PO; +APIX5TAB3 PO; +AZIT500T5 PO; +CARCD120C PO
[2018-03-31 19:38] LABS: BASOPHILS # (AUTO) 0.1 X10'3 (0-0.2); BASOPHILS % (AUTO) 0.4 % (0-1); EOSINOPHILS # (AUTO) 0.3 X10'3 (0-0.9); HEMATOCRIT 29.2 % (42.0-52.0); HEMOGLOBIN 9.6 g/dl (14.0-17.9); LYMPHOCYTES # (AUTO) 0.5 X10'3 (1.1-4.8); MEAN CORPUSCULAR HEMOGLOBIN 28.9 PG (27.0-31.0); MEAN CORPUSCULAR VOLUME 87.5 FL (78-98); MONOCYTES # (AUTO) 0.2 X10'3 (0-0.9); MONOCYTES % (AUTO) 0.6 % (2-12); NEUTROPHILS # (AUTO) 25.4 X10'3 (1.8-7.7); RED BLOOD COUNT 3.34 X10'6 (4.70-6.10); RED CELL DISTRIBUTION WIDTH 15.2 % (11.5-14.5)
[2018-03-31 19:43] LABS: PLATELET COUNT 1053 X10'3 (140-440); WHITE BLOOD COUNT 26.5 X10'3 (4.5-11.0)
[2018-03-31] MEDS ORDERED: vancomycin/NS 1 GM ADD-VANTAGE 250 ML IV ONE (19:45)
[2018-03-31] MEDS ORDERED: piperacillin/tazo 3.375gm/50ml 50 ML IV ONE (19:45)
[2018-03-31 19:49] LABS: ALANINE AMINOTRANSFERASE 21 U/L (12-78); ALBUMIN 1.9 G/DL (3.4-5.0); ALBUMIN/GLOBULIN RATIO 0.4 (1.1-1.5); ALKALINE PHOSPHATASE 108 IU/L (46-116); ANION GAP 12 (8-16); ASPARTATE AMINO TRANSFERASE 15 U/L (10-37); BILIRUBIN,TOTAL 0.4 MG/DL (0.1-1.0); BLOOD UREA NITROGEN 12 MG/DL (7-18); CHLORIDE 100 MMOL/L (99-107); CREATININE 1.09 MG/DL (0.60-1.10); GLUCOSE 113 MG/DL (70-104); POTASSIUM 3.6 MMOL/L (3.5-5.1); SODIUM 134 MMOL/L (135-145); TOTAL CARBON DIOXIDE 21.9 MMOL/L (24-32); TOTAL PROTEIN 6.9 G/DL (6.4-8.2); eGFR 67 ML/MIN
[2018-03-31 19:59] LABS: MAGNESIUM 1.7 MG/DL (1.5-2.4)
[2018-03-31] MEDS ORDERED: iohexol 350MG/ML 100ml bottle IV ONE (20:11)
[2018-03-31 20:39] LABS: TOTAL CELLS COUNTED 100
[2018-03-31 20:41] LABS: PLATELET ESTIMATE INCREASED
[2018-03-31 20:46] LABS: HYPERSEGMENTED NEUTROPHILS FEW; LARGE PLATELETS FEW
[2018-03-31] MEDS ORDERED: temazepam 15mg capsule PO PRN (21:00)
[2018-03-31] MEDS ORDERED: mag hydrox/Alum hydrox/simeth 30ml oral suspension PO PRN (21:05)
[2018-03-31] MEDS ORDERED: non-formulary drug (Albuterol Sulfate (Proair Hfa) 2 PUFFS) IH PRN (21:05)
[2018-03-31] MEDS ORDERED: acetaminophen 325mg tablet PO PRN ×2 (21:05)
[2018-03-31] MEDS: normal saline 1000ml 1,000 ML IV SCH (21:18)
[2018-03-31 21:31] LABS: CLARITY,URINE CLEAR (Clear); COLOR,URINE YELLOW (Yellow); GLUCOSE, URINE NEGATIVE (Neg); KETONES,URINE NEGATIVE (Neg); LEUKOCYTE ESTERASE ,URINE NEGATIVE (Neg); NITRITES, URINE NEGATIVE (Neg); OCCULT BLOOD,URINE TRACE-INTACT (Neg); PROTEIN,URINE 30 mg/dl (Neg); UROBILINOGEN,URINE 0.2 E.U/dL (0.2-1.0)
[2018-03-31 21:32] LABS: UA COLLECTION TYPE URINAL
[2018-03-31 21:40] LABS: BACTERIA,URINE NONE SEEN /HPF (Neg); FINE GRANULAR CAST 0-3 /LPF (NEGATIVE); HYALINE CASTS 0-3 /LPF (NEGATIVE); MUCUS STRANDS FEW /LPF (Neg); RBC,URINE 0-2 /HPF (0-2); SQUAMOUS EPITHELIAL CELL,UR FEW /LPF (FEW); WBC,URINE 0-4 /HPF (0-4)
[2018-03-31 22:10] VITALS: BP 134/76
[2018-03-31] MEDS: albuterol 2.5 MG/3 ML nebule NEB PRN (22:21)
[2018-03-31] MEDS: levoFLOXACIN-Levaquin 750MG/D5 150 ML IV SCH (22:47)
[2018-03-31] MEDS ORDERED: apixaban 5mg tablet PO ONE (23:00)
[2018-03-31] MEDS: lisinopril 20mg tablet PO SCH (23:10)
[2018-03-31] MEDS: HYDROcodone/acetaminophen 5mg/325mg tablet PO PRN (23:11)
[2018-04-01] VITALS: BP 134/74
[2018-04-01 06:04] LABS: BASOPHILS % (AUTO) 0 % (0-1); EOSINOPHILS # (AUTO) 0.7 X10'3 (0-0.9); EOSINOPHILS % (AUTO) 3.3 % (0-6); HEMATOCRIT 25.8 % (42.0-52.0); HEMOGLOBIN 8.6 g/dl (14.0-17.9); LYMPHOCYTES # (AUTO) 0.4 X10'3 (1.1-4.8); MEAN CORPUSCULAR HEMOGLOBIN 29.1 PG (27.0-31.0); MEAN CORPUSCULAR HGB CONC 33.3 % (33.0-36.5); MEAN CORPUSCULAR VOLUME 87.4 FL (78-98); MONOCYTES # (AUTO) 1.1 X10'3 (0-0.9); MONOCYTES % (AUTO) 5.3 % (2-12); NEUTROPHILS # (AUTO) 17.9 X10'3 (1.8-7.7); NEUTROPHILS % (AUTO) 89.4 % (42-75); PLATELET COUNT 951 X10'3 (140-440); RED BLOOD COUNT 2.95 X10'6 (4.70-6.10); RED CELL DISTRIBUTION WIDTH 15.4 % (11.5-14.5); WHITE BLOOD COUNT 20.1 X10'3 (4.5-11.0)
[2018-04-01 06:10] LABS: ALBUMIN 1.6 G/DL (3.4-5.0); ANION GAP 10 (8-16); BLOOD UREA NITROGEN 13 MG/DL (7-18); BUN/CREATININE RATIO 12.4 (5.4-32.0); CALCIUM 8.2 MG/DL (8.5-10.1); CHLORIDE 102 MMOL/L (99-107); CREATININE 1.05 MG/DL (0.60-1.10); GLUCOSE 97 MG/DL (70-104); POTASSIUM 3.6 MMOL/L (3.5-5.1); SODIUM 135 MMOL/L (135-145); TOTAL CARBON DIOXIDE 22.7 MMOL/L (24-32); eGFR 70 ML/MIN
[2018-04-01 07:15] VITALS: BP 129/76
[2018-04-01] MEDS ORDERED: lisinopril 20mg tablet PO SCH (08:00)
[2018-04-01] MEDS ORDERED: FEXOFENADINE 180 MG PO SCH (08:00)
[2018-04-01] MEDS: cetirizine 10mg tablet PO SCH (08:00)
[2018-04-01] MEDS ORDERED: cefepime 2gm inj IV SCH (08:00)
[2018-04-01] MEDS: diltiazem CD 120mg capsule (once-daily) PO SCH (09:04)
[2018-04-01] MEDS: vitamin D (cholecalciferol) 1,000 unit tablet PO SCH (09:04)
[2018-04-01] MEDS: apixaban 5mg tablet PO SCH ×2 (09:05→19:18)
[2018-04-01] MEDS: HYDROcodone/acetaminophen 10/325mg tab PO PRN ×3 (09:14→18:21)
[2018-04-01] MEDS: CEFEPIME 1 GM in NORMAL SALINE 100ml IV.SOLN IV SCH ×2 (09:14→19:18)
[2018-04-01 10:43] VITALS: BP 148/77
[2018-04-01] MEDS: normal saline 1000ml 1,000 ML IV SCH ×2 (11:50→23:41)
[2018-04-01 19:00] VITALS: BP 155/74
[2018-04-01] MEDS: lactobacillus rhamnosus 10,000 MMU CELLS/CAPSULE PO SCH (19:18)
[2018-04-01] MEDS: levoFLOXACIN-Levaquin 750MG/D5 150 ML IV SCH (20:07)
[2018-04-01] MEDS: lisinopril 20mg tablet PO SCH (20:07)
[2018-04-01 23:58] VITALS: BP 134/85
[2018-04-02] MEDS: normal saline 1000ml 1,000 ML IV SCH ×2 (00:43→15:03)
[2018-04-02] MEDS: ondansetron/PF 4mg/2ml inj IV PRN ×2 (00:43→07:21)
[2018-04-02] MEDS: HYDROcodone/acetaminophen 10/325mg tab PO PRN ×4 (00:44→21:14)
[2018-04-02] MEDS: albuterol 2.5 MG/3 ML nebule NEB PRN (04:28)
[2018-04-02 05:17] LABS: BASOPHILS # (AUTO) 0.3 X10'3 (0-0.2); BASOPHILS % (AUTO) 1.5 % (0-1); EOSINOPHILS # (AUTO) 0.5 X10'3 (0-0.9); EOSINOPHILS % (AUTO) 2.5 % (0-6); HEMATOCRIT 26.9 % (42.0-52.0); HEMOGLOBIN 8.8 g/dl (14.0-17.9); LYMPHOCYTES # (AUTO) 0.7 X10'3 (1.1-4.8); LYMPHOCYTES % (AUTO) 3.5 % (21-51); MEAN CORPUSCULAR HEMOGLOBIN 28.8 PG (27.0-31.0); MEAN CORPUSCULAR HGB CONC 32.8 % (33.0-36.5); MEAN CORPUSCULAR VOLUME 87.9 FL (78-98); MEAN PLATELET VOLUME 7.6 FL (7.4-10.4); MONOCYTES % (AUTO) 5.5 % (2-12); NEUTROPHILS # (AUTO) 16.4 X10'3 (1.8-7.7); PLATELET COUNT 830 X10'3 (140-440); RED BLOOD COUNT 3.06 X10'6 (4.70-6.10); RED CELL DISTRIBUTION WIDTH 15.7 % (11.5-14.5); WHITE BLOOD COUNT 18.8 X10'3 (4.5-11.0)
[2018-04-02 05:31] LABS: ALBUMIN 1.5 G/DL (3.4-5.0); ANION GAP 11 (8-16); BLOOD UREA NITROGEN 11 MG/DL (7-18); BUN/CREATININE RATIO 10.9 (5.4-32.0); CALCIUM 8.3 MG/DL (8.5-10.1); CHLORIDE 103 MMOL/L (99-107); CREATININE 1.01 MG/DL (0.60-1.10); GLUCOSE 94 MG/DL (70-104); POTASSIUM 3.6 MMOL/L (3.5-5.1); SODIUM 136 MMOL/L (135-145); TOTAL CARBON DIOXIDE 22.5 MMOL/L (24-32); eGFR 73 ML/MIN
[2018-04-02 06:51] VITALS: BP 132/71
[2018-04-02] MEDS: CEFEPIME 1 GM in NORMAL SALINE 100ml IV.SOLN IV SCH ×2 (07:20→20:08)
[2018-04-02] MEDS: lactobacillus rhamnosus 10,000 MMU CELLS/CAPSULE PO SCH ×2 (07:22→20:08)
[2018-04-02] MEDS: apixaban 5mg tablet PO SCH ×2 (07:23→20:08)
[2018-04-02] MEDS: cetirizine 10mg tablet PO SCH (07:23)
[2018-04-02] MEDS: diltiazem CD 120mg capsule (once-daily) PO SCH (07:23)
[2018-04-02] MEDS: vitamin D (cholecalciferol) 1,000 unit tablet PO SCH (07:23)
[2018-04-02] MEDS ORDERED: ondansetron/PF 4mg/2ml inj IV PRN (07:40)
[2018-04-02] MEDS: albuterol 2.5 MG/3 ML nebule NEB SCH ×4 (08:39→19:45)
[2018-04-02] MEDS: pantoprazole 40mg Tablet.DR PO SCH (08:51)
[2018-04-02 11:47] VITALS: BP 131/70
[2018-04-02 18:00] VITALS: BP 138/75
[2018-04-02] MEDS: lisinopril 20mg tablet PO SCH (20:09)
[2018-04-02] MEDS ORDERED: enoxaparin 40mg/0.4ml syringe SUBCUT SCH (21:00)
[2018-04-02] MEDS: levoFLOXACIN-Levaquin 750MG/D5 150 ML IV SCH (21:14)
[2018-04-03] VITALS: BP 110/72
[2018-04-03] MEDS ORDERED: LORazepam 2 mg/ml vial IV ONE (03:05)
[2018-04-03] MEDS: albuterol 2.5 MG/3 ML nebule NEB SCH ×7 (03:24→23:20)
[2018-04-03 05:10] LABS: BASOPHILS # (AUTO) 0.1 X10'3 (0-0.2); BASOPHILS % (AUTO) 0.3 % (0-1); EOSINOPHILS # (AUTO) 0.3 X10'3 (0-0.9); EOSINOPHILS % (AUTO) 1.7 % (0-6); HEMATOCRIT 24.6 % (42.0-52.0); LYMPHOCYTES # (AUTO) 0.5 X10'3 (1.1-4.8); LYMPHOCYTES % (AUTO) 2.4 % (21-51); MEAN CORPUSCULAR HEMOGLOBIN 28.5 PG (27.0-31.0); MEAN CORPUSCULAR HGB CONC 32.7 % (33.0-36.5); MEAN CORPUSCULAR VOLUME 87.3 FL (78-98); MEAN PLATELET VOLUME 6.9 FL (7.4-10.4); MONOCYTES # (AUTO) 0.8 X10'3 (0-0.9); MONOCYTES % (AUTO) 4.1 % (2-12); NEUTROPHILS # (AUTO) 17.4 X10'3 (1.8-7.7); NEUTROPHILS % (AUTO) 91.5 % (42-75); PLATELET COUNT 848 X10'3 (140-440); RED BLOOD COUNT 2.82 X10'6 (4.70-6.10); RED CELL DISTRIBUTION WIDTH 15.5 % (11.5-14.5)
[2018-04-03] MEDS: normal saline 1000ml 1,000 ML IV SCH (05:10)
[2018-04-03 05:21] LABS: ALBUMIN 1.3 G/DL (3.4-5.0); ANION GAP 10 (8-16); BLOOD UREA NITROGEN 12 MG/DL (7-18); BUN/CREATININE RATIO 11.4 (5.4-32.0); CHLORIDE 103 MMOL/L (99-107); CREATININE 1.05 MG/DL (0.60-1.10); GLUCOSE 106 MG/DL (70-104); POTASSIUM 3.5 MMOL/L (3.5-5.1); SODIUM 136 MMOL/L (135-145); TOTAL CARBON DIOXIDE 22.6 MMOL/L (24-32); eGFR 70 ML/MIN
[2018-04-03 07:00] VITALS: BP 124/72
[2018-04-03] MEDS: vitamin D (cholecalciferol) 1,000 unit tablet PO SCH (08:35)
[2018-04-03] MEDS: diltiazem CD 120mg capsule (once-daily) PO SCH (08:36)
[2018-04-03] MEDS: cetirizine 10mg tablet PO SCH (08:36)
[2018-04-03] MEDS: pantoprazole 40mg Tablet.DR PO SCH (08:36)
[2018-04-03] MEDS: lactobacillus rhamnosus 10,000 MMU CELLS/CAPSULE PO SCH ×2 (08:36→20:13)
[2018-04-03] MEDS: apixaban 5mg tablet PO SCH ×2 (08:37→20:14)
[2018-04-03] MEDS: CEFEPIME 1 GM in NORMAL SALINE 100ml IV.SOLN IV SCH (08:37)
[2018-04-03] MEDS: magnesium hydroxide 30ml (MOM) UD suspension PO PRN (08:41)
[2018-04-03] MEDS: HYDROcodone/acetaminophen 10/325mg tab PO PRN ×2 (09:25→20:14)
[2018-04-03 11:57] VITALS: BP 122/71
[2018-04-03 20:00] VITALS: BP 143/77
[2018-04-03] MEDS: lisinopril 20mg tablet PO SCH (20:14)
[2018-04-03] MEDS: levoFLOXACIN-Levaquin 750MG/D5 150 ML IV SCH (20:14)
[2018-04-03] MEDS: cefepime 2g/NS 100ml ADVANTAGE 100 ML IV SCH (20:14)
[2018-04-03] MEDS: fluconazole 100mg tablet PO SCH (20:59)
[2018-04-03] MEDS: LORazepam 2 mg/ml vial IV PRN (23:56)
[2018-04-04] VITALS (17 sets, daily range): BP systolic 113–159; BP diastolic 71–91
[2018-04-04] MEDS: albuterol 2.5 MG/3 ML nebule NEB SCH ×6 (02:49→22:57)
[2018-04-04] MEDS: HYDROcodone/acetaminophen 10/325mg tab PO PRN (04:13)
[2018-04-04] MEDS: normal saline 1000ml 1,000 ML IV SCH ×2 (05:01→18:21)
[2018-04-04 05:41] LABS: BASOPHILS % (AUTO) 0 % (0-1); EOSINOPHILS # (AUTO) 0.1 X10'3 (0-0.9); EOSINOPHILS % (AUTO) 0.6 % (0-6); HEMATOCRIT 24.5 % (42.0-52.0); HEMOGLOBIN 8.1 g/dl (14.0-17.9); LYMPHOCYTES # (AUTO) 0.5 X10'3 (1.1-4.8); LYMPHOCYTES % (AUTO) 2.5 % (21-51); MEAN CORPUSCULAR HEMOGLOBIN 28.6 PG (27.0-31.0); MEAN CORPUSCULAR HGB CONC 32.9 % (33.0-36.5); MEAN CORPUSCULAR VOLUME 87.1 FL (78-98); MEAN PLATELET VOLUME 7.3 FL (7.4-10.4); MONOCYTES # (AUTO) 0.8 X10'3 (0-0.9); MONOCYTES % (AUTO) 4.2 % (2-12); NEUTROPHILS % (AUTO) 92.7 % (42-75); PLATELET COUNT 756 X10'3 (140-440); RED BLOOD COUNT 2.81 X10'6 (4.70-6.10); RED CELL DISTRIBUTION WIDTH 15.5 % (11.5-14.5); WHITE BLOOD COUNT 19.4 X10'3 (4.5-11.0)
[2018-04-04 05:44] LABS: ALBUMIN 1.3 G/DL (3.4-5.0); ANION GAP 9 (8-16); BLOOD UREA NITROGEN 13 MG/DL (7-18); BUN/CREATININE RATIO 13.1 (5.4-32.0); CALCIUM 7.9 MG/DL (8.5-10.1); CHLORIDE 103 MMOL/L (99-107); CREATININE 0.99 MG/DL (0.60-1.10); GLUCOSE 112 MG/DL (70-104); POTASSIUM 3.6 MMOL/L (3.5-5.1); SODIUM 136 MMOL/L (135-145); TOTAL CARBON DIOXIDE 24.5 MMOL/L (24-32); eGFR 75 ML/MIN
[2018-04-04 07:10] LABS: ABG BASE EXCESS -3.1 mmol/L (-2.0-3.0); ABG HCO3 21.2 mmol/L (22.0-26.0); ABG OXYGEN SATURATION 83.5 % (95-98); ABG PCO2 (T) 34.9 mmHg (35.0-48.0); ABG PH (T) 7.402 (7.350-7.450); ABG PO2 (T) 50.2 mmHg (83-108); ALLEN'S TEST Positive; FCOHb 0.1 % (0.5-1.5); FLOW 15 L/min; FO2Hb 83.4 % (94-100); TOTAL HEMOGLOBIN 9.3 G/dl (14.0-18.0)
[2018-04-04] MEDS: pantoprazole 40mg Tablet.DR PO SCH ×2 (07:30→10:16)
[2018-04-04] MEDS: fluconazole 100mg tablet PO SCH ×2 (08:00→10:17)
[2018-04-04] MEDS: cetirizine 10mg tablet PO SCH ×2 (08:00→10:15)
[2018-04-04] MEDS: diltiazem CD 120mg capsule (once-daily) PO SCH ×2 (08:00→10:16)
[2018-04-04] MEDS: lactobacillus rhamnosus 10,000 MMU CELLS/CAPSULE PO SCH ×3 (08:00→21:14)
[2018-04-04] MEDS: apixaban 5mg tablet PO SCH ×3 (08:00→21:14)
[2018-04-04] MEDS: vitamin D (cholecalciferol) 1,000 unit tablet PO SCH ×2 (08:00→10:17)
[2018-04-04] MEDS: furosemide 20 MG/2 ML vial IV SCH ×2 (08:40→21:14)
[2018-04-04] MEDS: cefepime 2g/NS 100ml ADVANTAGE 100 ML IV SCH ×2 (08:49→21:12)
[2018-04-04] MEDS: acetylcysteine 200 MG/ml 4ml vial INH SCH ×3 (09:00→21:17)
[2018-04-04 09:26] LABS: ABG HCO3 23.1 mmol/L (22.0-26.0); ABG OXYGEN SATURATION 96.7 % (95-98); ABG PCO2 (T) 35.8 mmHg (35.0-48.0); ABG PH (T) 7.427 (7.350-7.450); ALLEN'S TEST Positive; FCOHb 0.1 % (0.5-1.5); FMetHb 0.2 % (0.3-1.12); FO2Hb 96.4 % (94-100); MINUTE VOLUME 15 L/min; RESPIRATORY RATE 6 b/min; RESPIRATORY RATE (OBSERVED) 26 b/min; TIDAL VOLUME 565 mL; TOTAL HEMOGLOBIN 9.2 G/dl (14.0-18.0)
[2018-04-04] MEDS: linezolid 600mg/300ml PREMIX 300 ML IV SCH ×2 (09:38→21:14)
[2018-04-04] MEDS: methylPREDNISolone sod succ 125mg/2ml vial IV SCH ×2 (14:04→21:14)
[2018-04-04] MEDS: LORazepam 2 mg/ml vial IV PRN (14:13)
[2018-04-04] MEDS: magnesium hydroxide 30ml (MOM) UD suspension PO PRN (21:14)
[2018-04-04] MEDS: lisinopril 20mg tablet PO SCH (21:19)
[2018-04-05] VITALS (24 sets, daily range): BP systolic 111–160; BP diastolic 61–80
[2018-04-05] MEDS: methylPREDNISolone sod succ 125mg/2ml vial IV SCH ×4 (01:53→20:12)
[2018-04-05] MEDS: normal saline 1000ml 1,000 ML IV SCH ×2 (01:55→21:01)
[2018-04-05] MEDS: albuterol 2.5 MG/3 ML nebule NEB SCH ×6 (03:07→23:03)
[2018-04-05 04:04] LABS: BASOPHILS % (AUTO) 0 % (0-1); EOSINOPHILS # (AUTO) 0.2 X10'3 (0-0.9); EOSINOPHILS % (AUTO) 1.3 % (0-6); HEMATOCRIT 25.9 % (42.0-52.0); HEMOGLOBIN 8.6 g/dl (14.0-17.9); LYMPHOCYTES # (AUTO) 0.5 X10'3 (1.1-4.8); LYMPHOCYTES % (AUTO) 2.6 % (21-51); MEAN CORPUSCULAR HEMOGLOBIN 28.6 PG (27.0-31.0); MEAN CORPUSCULAR HGB CONC 33.2 % (33.0-36.5); MEAN CORPUSCULAR VOLUME 86.2 FL (78-98); MONOCYTES # (AUTO) 0.2 X10'3 (0-0.9); MONOCYTES % (AUTO) 1.1 % (2-12); NEUTROPHILS # (AUTO) 16.9 X10'3 (1.8-7.7); PLATELET COUNT 716 X10'3 (140-440); RED CELL DISTRIBUTION WIDTH 15.5 % (11.5-14.5); WHITE BLOOD COUNT 17.8 X10'3 (4.5-11.0)
[2018-04-05 04:12] LABS: ALBUMIN 1.4 G/DL (3.4-5.0); ANION GAP 9 (8-16); BLOOD UREA NITROGEN 18 MG/DL (7-18); BUN/CREATININE RATIO 16.2 (5.4-32.0); CALCIUM 8.7 MG/DL (8.5-10.1); CHLORIDE 101 MMOL/L (99-107); CREATININE 1.11 MG/DL (0.60-1.10); GLUCOSE 130 MG/DL (70-104); POTASSIUM 3.2 MMOL/L (3.5-5.1); SODIUM 137 MMOL/L (135-145); TOTAL CARBON DIOXIDE 27.2 MMOL/L (24-32); eGFR 65 ML/MIN
[2018-04-05] MEDS: apixaban 5mg tablet PO SCH ×2 (07:54→20:12)
[2018-04-05] MEDS: pantoprazole 40mg Tablet.DR PO SCH (07:54)
[2018-04-05] MEDS: cefepime 2g/NS 100ml ADVANTAGE 100 ML IV SCH ×2 (07:54→20:10)
[2018-04-05] MEDS: lactobacillus rhamnosus 10,000 MMU CELLS/CAPSULE PO SCH ×2 (07:54→20:12)
[2018-04-05] MEDS: cetirizine 10mg tablet PO SCH (07:54)
[2018-04-05] MEDS: vitamin D (cholecalciferol) 1,000 unit tablet PO SCH (07:54)
[2018-04-05] MEDS: diltiazem CD 120mg capsule (once-daily) PO SCH (07:54)
[2018-04-05] MEDS: furosemide 20 MG/2 ML vial IV SCH ×2 (07:54→20:11)
[2018-04-05] MEDS: K and/or MAG REPLACEMENT MC SCH (08:00)
[2018-04-05] MEDS: fluconazole 100mg tablet PO SCH (08:27)
[2018-04-05] MEDS: linezolid 600mg/300ml PREMIX 300 ML IV SCH (08:28)
[2018-04-05] MEDS: acetylcysteine 200 MG/ml 4ml vial INH SCH ×2 (09:00→21:00)
[2018-04-05] MEDS ORDERED: sodium phosphate inj. 30 MMOL in dextrose 5%-water 250 ML IV PRN (09:38)
[2018-04-05] MEDS ORDERED: sodium phosphate inj. 15 MMOL in dextrose 5%-water 150 ML IV PRN (09:38)
[2018-04-05] MEDS ORDERED: magnesium 4gm in 100ml NS 100 ML IV PRN (09:40)
[2018-04-05] MEDS ORDERED: magnesium Cl slow-release 64mg tablet PO PRN (09:40)
[2018-04-05] MEDS ORDERED: Neutra Phos packet PO PRN (09:40)
[2018-04-05] MEDS ORDERED: potassium Cl 40MEQ/250ML bag 250 ML IV PRN ×2 (09:40)
[2018-04-05] MEDS ORDERED: magnesium 1gm/100ml D5W IVPB 100 ML IV PRN (09:40)
[2018-04-05] MEDS: potassium Cl 20 mEq SR tablet PO PRN ×3 (09:51→17:31)
[2018-04-05] MEDS: magnesium hydroxide 30ml (MOM) UD suspension PO PRN (17:31)
[2018-04-05] MEDS: HYDROcodone/acetaminophen 5mg/325mg tablet PO PRN (19:28)
[2018-04-05] MEDS: linezolid 600mg tablet PO SCH (20:29)
[2018-04-05] MEDS: lisinopril 20mg tablet PO SCH (20:31)
[2018-04-06] VITALS (24 sets, daily range): BP systolic 121–151; BP diastolic 68–89
[2018-04-06] MEDS: albuterol 2.5 MG/3 ML nebule NEB SCH ×6 (03:25→23:22)
[2018-04-06] MEDS: normal saline 1000ml 1,000 ML IV SCH ×2 (06:13→23:41)
[2018-04-06 06:18] LABS: MAGNESIUM 2.4 MG/DL (1.5-2.4); PHOSPHORUS 3.2 MG/DL (2.3-4.5); POTASSIUM 3.5 MMOL/L (3.5-5.1)
[2018-04-06] MEDS: K and/or MAG REPLACEMENT MC SCH (08:00)
[2018-04-06] MEDS: methylPREDNISolone sod succ 125mg/2ml vial IV SCH ×2 (08:32→20:48)
[2018-04-06] MEDS: cefepime 2g/NS 100ml ADVANTAGE 100 ML IV SCH ×2 (08:32→20:55)
[2018-04-06] MEDS: furosemide 20 MG/2 ML vial IV SCH ×2 (08:32→20:54)
[2018-04-06] MEDS: diltiazem CD 120mg capsule (once-daily) PO SCH (08:33)
[2018-04-06] MEDS: vitamin D (cholecalciferol) 1,000 unit tablet PO SCH (08:33)
[2018-04-06] MEDS: lactobacillus rhamnosus 10,000 MMU CELLS/CAPSULE PO SCH ×2 (08:33→20:45)
[2018-04-06] MEDS: cetirizine 10mg tablet PO SCH (08:33)
[2018-04-06] MEDS: linezolid 600mg tablet PO SCH ×2 (08:33→20:45)
[2018-04-06] MEDS: fluconazole 100mg tablet PO SCH (08:33)
[2018-04-06] MEDS: apixaban 5mg tablet PO SCH ×2 (08:33→20:45)
[2018-04-06] MEDS: pantoprazole 40mg Tablet.DR PO SCH (08:54)
[2018-04-06] MEDS: LORazepam 2 mg/ml vial IV PRN (10:07)
[2018-04-06] MEDS: acetylcysteine 200 MG/ml 4ml vial INH SCH (10:29)
[2018-04-06] MEDS ORDERED: bisacodyl 10mg suppository rectal RC STA (11:03)
[2018-04-06] MEDS: polyethylene glycol 3350 17gm powd pack PO SCH (12:08)
[2018-04-06] MEDS ORDERED: magnesium citrate 296ml oral solution PO ONE (16:00)
[2018-04-06] MEDS ORDERED: magnesium hydroxide 30ml (MOM) UD suspension PO ONE (20:00)
[2018-04-06] MEDS: lisinopril 20mg tablet PO SCH (20:45)
[2018-04-07] VITALS (22 sets, daily range): BP systolic 118–154; BP diastolic 60–80
[2018-04-07] MEDS: albuterol 2.5 MG/3 ML nebule NEB SCH ×6 (03:35→23:04)
[2018-04-07 06:23] LABS: PHOSPHORUS 3.3 MG/DL (2.3-4.5); POTASSIUM 3.2 MMOL/L (3.5-5.1)
[2018-04-07] MEDS: cefepime 2g/NS 100ml ADVANTAGE 100 ML IV SCH ×2 (07:45→21:06)
[2018-04-07] MEDS: methylPREDNISolone sod succ 125mg/2ml vial IV SCH ×2 (07:45→21:06)
[2018-04-07] MEDS: vitamin D (cholecalciferol) 1,000 unit tablet PO SCH (07:46)
[2018-04-07] MEDS: cetirizine 10mg tablet PO SCH (07:47)
[2018-04-07] MEDS: potassium Cl 20 mEq SR tablet PO PRN ×2 (07:47→12:52)
[2018-04-07] MEDS: diltiazem CD 120mg capsule (once-daily) PO SCH (07:47)
[2018-04-07] MEDS: fluconazole 100mg tablet PO SCH (07:47)
[2018-04-07] MEDS: linezolid 600mg tablet PO SCH ×2 (07:47→21:07)
[2018-04-07] MEDS: apixaban 5mg tablet PO SCH ×2 (07:47→21:07)
[2018-04-07] MEDS: lactobacillus rhamnosus 10,000 MMU CELLS/CAPSULE PO SCH ×2 (07:48→21:07)
[2018-04-07] MEDS: polyethylene glycol 3350 17gm powd pack PO SCH (07:48)
[2018-04-07] MEDS: pantoprazole 40mg Tablet.DR PO SCH (07:48)
[2018-04-07] MEDS: furosemide 20 MG/2 ML vial IV SCH (07:48)
[2018-04-07] MEDS: K and/or MAG REPLACEMENT MC SCH (08:00)
[2018-04-07 08:50] LABS: ALANINE AMINOTRANSFERASE 63 U/L (12-78); ALBUMIN 1.6 G/DL (3.4-5.0); ALBUMIN/GLOBULIN RATIO 0.3 (1.1-1.5); ALKALINE PHOSPHATASE 132 IU/L (46-116); ANION GAP 9 (8-16); ASPARTATE AMINO TRANSFERASE 54 U/L (10-37); BILIRUBIN,TOTAL 0.2 MG/DL (0.1-1.0); BLOOD UREA NITROGEN 32 MG/DL (7-18); BUN/CREATININE RATIO 25.6 (5.4-32.0); CHLORIDE 103 MMOL/L (99-107); CREATININE 1.25 MG/DL (0.60-1.10); GLUCOSE 124 MG/DL (70-104); SODIUM 143 MMOL/L (135-145); TOTAL CARBON DIOXIDE 30.7 MMOL/L (24-32); TOTAL PROTEIN 6.2 G/DL (6.4-8.2); eGFR 57 ML/MIN
[2018-04-07] MEDS: furosemide 10 MG/1 ML 10ml inj IV SCH ×2 (12:52→21:06)
[2018-04-07] MEDS: lisinopril 20mg tablet PO SCH (21:06)
[2018-04-08] VITALS (20 sets, daily range): BP systolic 114–147; BP diastolic 61–74
[2018-04-08] MEDS: LORazepam 2 mg/ml vial IV PRN ×2 (00:54→20:46)
[2018-04-08] MEDS: albuterol 2.5 MG/3 ML nebule NEB SCH ×6 (03:41→23:07)
[2018-04-08 05:39] LABS: ALANINE AMINOTRANSFERASE 52 U/L (12-78); ALBUMIN 1.7 G/DL (3.4-5.0); ALBUMIN/GLOBULIN RATIO 0.4 (1.1-1.5); ALKALINE PHOSPHATASE 124 IU/L (46-116); ANION GAP 7 (8-16); ASPARTATE AMINO TRANSFERASE 25 U/L (10-37); BILIRUBIN,TOTAL 0.3 MG/DL (0.1-1.0); BLOOD UREA NITROGEN 32 MG/DL (7-18); BUN/CREATININE RATIO 21.5 (5.4-32.0); CALCIUM 8.1 MG/DL (8.5-10.1); CHLORIDE 99 MMOL/L (99-107); CREATININE 1.49 MG/DL (0.60-1.10); GLUCOSE 128 MG/DL (70-104); MAGNESIUM 2.5 MG/DL (1.5-2.4); SODIUM 141 MMOL/L (135-145); TOTAL CARBON DIOXIDE 35.1 MMOL/L (24-32); TOTAL PROTEIN 6.3 G/DL (6.4-8.2); eGFR 46 ML/MIN
[2018-04-08 05:44] LABS: POTASSIUM 2.9 MMOL/L (3.5-5.1)
[2018-04-08] MEDS: potassium Cl 20 mEq SR tablet PO PRN ×3 (05:57→17:27)
[2018-04-08] MEDS: polyethylene glycol 3350 17gm powd pack PO SCH (08:00)
[2018-04-08] MEDS: cefepime 2g/NS 100ml ADVANTAGE 100 ML IV SCH ×2 (09:03→20:35)
[2018-04-08] MEDS: lactobacillus rhamnosus 10,000 MMU CELLS/CAPSULE PO SCH ×2 (09:04→20:36)
[2018-04-08] MEDS: methylPREDNISolone sod succ 125mg/2ml vial IV SCH ×2 (09:04→20:34)
[2018-04-08] MEDS: cetirizine 10mg tablet PO SCH (09:04)
[2018-04-08] MEDS: diltiazem CD 120mg capsule (once-daily) PO SCH (09:04)
[2018-04-08] MEDS: fluconazole 100mg tablet PO SCH (09:04)
[2018-04-08] MEDS: linezolid 600mg tablet PO SCH ×2 (09:04→20:35)
[2018-04-08] MEDS: apixaban 5mg tablet PO SCH ×2 (09:05→20:36)
[2018-04-08 09:27] LABS: BASOPHILS % (AUTO) 0 % (0-1); EOSINOPHILS % (AUTO) 0 % (0-6); HEMATOCRIT 25.7 % (42.0-52.0); HEMOGLOBIN 8.5 g/dl (14.0-17.9); LYMPHOCYTES # (AUTO) 0.4 X10'3 (1.1-4.8); LYMPHOCYTES % (AUTO) 2.4 % (21-51); MEAN CORPUSCULAR HEMOGLOBIN 28.3 PG (27.0-31.0); MEAN CORPUSCULAR VOLUME 85.8 FL (78-98); MEAN PLATELET VOLUME 6.5 FL (7.4-10.4); MONOCYTES # (AUTO) 0.4 X10'3 (0-0.9); MONOCYTES % (AUTO) 2.4 % (2-12); NEUTROPHILS # (AUTO) 17.4 X10'3 (1.8-7.7); NEUTROPHILS % (AUTO) 95.2 % (42-75); PLATELET COUNT 525 X10'3 (140-440); RED CELL DISTRIBUTION WIDTH 16.5 % (11.5-14.5); WHITE BLOOD COUNT 18.3 X10'3 (4.5-11.0)
[2018-04-08] MEDS: vitamin D (cholecalciferol) 1,000 unit tablet PO SCH (09:54)
[2018-04-08] MEDS: pantoprazole 40mg Tablet.DR PO SCH (09:54)
[2018-04-08] MEDS: Protein Shake (high protein) 240ml (8oz) cup PO SCH ×2 (13:00→18:00)
[2018-04-08] MEDS: lisinopril 20mg tablet PO SCH (20:36)
[2018-04-09] VITALS (17 sets, daily range): BP systolic 113–150; BP diastolic 63–79
[2018-04-09] MEDS: albuterol 2.5 MG/3 ML nebule NEB SCH ×6 (02:54→23:37)
[2018-04-09 05:24] LABS: ALANINE AMINOTRANSFERASE 54 U/L (12-78); ALBUMIN 1.8 G/DL (3.4-5.0); ALBUMIN/GLOBULIN RATIO 0.4 (1.1-1.5); ALKALINE PHOSPHATASE 122 IU/L (46-116); ANION GAP 6 (8-16); ASPARTATE AMINO TRANSFERASE 28 U/L (10-37); BILIRUBIN,TOTAL 0.2 MG/DL (0.1-1.0); BLOOD UREA NITROGEN 30 MG/DL (7-18); BUN/CREATININE RATIO 20.7 (5.4-32.0); CALCIUM 8.6 MG/DL (8.5-10.1); CHLORIDE 100 MMOL/L (99-107); CREATININE 1.45 MG/DL (0.60-1.10); GLUCOSE 137 MG/DL (70-104); MAGNESIUM 2.4 MG/DL (1.5-2.4); POTASSIUM 3.8 MMOL/L (3.5-5.1); SODIUM 137 MMOL/L (135-145); TOTAL CARBON DIOXIDE 30.9 MMOL/L (24-32); TOTAL PROTEIN 6.3 G/DL (6.4-8.2); eGFR 48 ML/MIN
[2018-04-09] MEDS: pantoprazole 40mg Tablet.DR PO SCH (07:25)
[2018-04-09] MEDS: cefepime 2g/NS 100ml ADVANTAGE 100 ML IV SCH ×2 (07:27→20:00)
[2018-04-09] MEDS: methylPREDNISolone sod succ 125mg/2ml vial IV SCH ×2 (07:29→19:50)
[2018-04-09] MEDS: diltiazem CD 120mg capsule (once-daily) PO SCH (07:30)
[2018-04-09] MEDS: apixaban 5mg tablet PO SCH ×2 (07:30→19:50)
[2018-04-09] MEDS: lactobacillus rhamnosus 10,000 MMU CELLS/CAPSULE PO SCH ×2 (07:30→19:50)
[2018-04-09] MEDS: vitamin D (cholecalciferol) 1,000 unit tablet PO SCH (07:30)
[2018-04-09] MEDS: fluconazole 100mg tablet PO SCH (07:30)
[2018-04-09] MEDS: cetirizine 10mg tablet PO SCH (07:31)
[2018-04-09] MEDS: linezolid 600mg tablet PO SCH ×2 (07:31→19:52)
[2018-04-09] MEDS ORDERED: furosemide 10 MG/1 ML 10ml inj IV SCH (08:00)
[2018-04-09] MEDS: polyethylene glycol 3350 17gm powd pack PO SCH (08:00)
[2018-04-09] MEDS: Protein Shake (high protein) 240ml (8oz) cup PO SCH ×3 (08:00→18:00)
[2018-04-09] MEDS ORDERED: furosemide 40mg/4ml inj IV SCH (09:32)
[2018-04-09] MEDS: lisinopril 20mg tablet PO SCH (20:06)
[2018-04-09] MEDS: LORazepam 2 mg/ml vial IV PRN (21:06)
[2018-04-10 03:00] VITALS: BP 149/81
[2018-04-10] MEDS: albuterol 2.5 MG/3 ML nebule NEB SCH ×4 (03:41→16:00)
[2018-04-10 05:37] LABS: ALANINE AMINOTRANSFERASE 61 U/L (12-78); ALBUMIN 1.7 G/DL (3.4-5.0); ALBUMIN/GLOBULIN RATIO 0.4 (1.1-1.5); ALKALINE PHOSPHATASE 114 IU/L (46-116); ANION GAP 6 (8-16); ASPARTATE AMINO TRANSFERASE 30 U/L (10-37); BILIRUBIN,TOTAL 0.3 MG/DL (0.1-1.0); BLOOD UREA NITROGEN 31 MG/DL (7-18); CALCIUM 8.5 MG/DL (8.5-10.1); CHLORIDE 102 MMOL/L (99-107); CREATININE 1.24 MG/DL (0.60-1.10); GLUCOSE 118 MG/DL (70-104); MAGNESIUM 2.3 MG/DL (1.5-2.4); PHOSPHORUS 3.1 MG/DL (2.3-4.5); POTASSIUM 3.9 MMOL/L (3.5-5.1); SODIUM 140 MMOL/L (135-145); eGFR 57 ML/MIN
[2018-04-10 06:00] VITALS: BP 125/66
[2018-04-10] MEDS ORDERED: methylPREDNISolone sod succ 125mg/2ml vial IV SCH (08:00)
[2018-04-10] MEDS: polyethylene glycol 3350 17gm powd pack PO SCH (08:00)
[2018-04-10] MEDS: cefepime 2g/NS 100ml ADVANTAGE 100 ML IV SCH (08:06)
[2018-04-10] MEDS: pantoprazole 40mg Tablet.DR PO SCH (08:07)
[2018-04-10] MEDS: lactobacillus rhamnosus 10,000 MMU CELLS/CAPSULE PO SCH (08:07)
[2018-04-10] MEDS: vitamin D (cholecalciferol) 1,000 unit tablet PO SCH (08:07)
[2018-04-10] MEDS: diltiazem CD 120mg capsule (once-daily) PO SCH (08:08)
[2018-04-10] MEDS: cetirizine 10mg tablet PO SCH (08:08)
[2018-04-10] MEDS: apixaban 5mg tablet PO SCH (08:08)
[2018-04-10] MEDS: linezolid 600mg tablet PO SCH (08:11)
[2018-04-10 11:00] VITALS: BP 133/74
[2018-04-10] MEDS: LORazepam 2 mg/ml vial IV PRN (14:05)
== END 2018-04-10 18:25 | DRG 871 ==
LOC: ER 19:00 → ED HOLD 21:01 → SUR 3N 22:00 → CICU 2S 04-04 07:44 → PCU 3S 04-09 13:45
PROVIDERS: ADMIT Hospitalist; ATTEND Internal Medicine Critical Care Medicine
PROC: B32T1ZZ Computerized Tomography (CT Scan) of Left Pulmonary Artery using Low Osmolar Contrast (ICD-10-PCS; 2018-03-31)
PROC: B3201ZZ Computerized Tomography (CT Scan) of Thoracic Aorta using Low Osmolar Contrast (ICD-10-PCS; 2018-03-31)
PROC: B32S1ZZ Computerized Tomography (CT Scan) of Right Pulmonary Artery using Low Osmolar Contrast (ICD-10-PCS; 2018-03-31)
PROC: 5A09357 Assistance with Respiratory Ventilation, Less than 24 Consecutive Hours, Continuous Positive Airway Pressure (ICD-10-PCS; principal; 2018-04-04)
PROC: 5A09357 Assistance with Respiratory Ventilation, Less than 24 Consecutive Hours, Continuous Positive Airway Pressure (ICD-10-PCS; 2018-04-05)
DX: A41.9 Sepsis, unspecified organism (principal); J18.9 Pneumonia, unspecified organism; E43 Unspecified severe protein-calorie malnutrition; J96.01 Acute respiratory failure with hypoxia; E87.1 Hypo-osmolality and hyponatremia; J44.0 Chronic obstructive pulmonary disease with (acute) lower respiratory infection; J90 Pleural effusion, not elsewhere classified; I10 Essential (primary) hypertension; Y95 Nosocomial condition; I48.91 Unspecified atrial fibrillation; D47.3 Essential (hemorrhagic) thrombocythemia; D64.9 Anemia, unspecified; F12.90 Cannabis use, unspecified, uncomplicated; Z90.2 Acquired absence of lung [part of]; Z91.09 Other allergy status, other than to drugs and biological substances; Z79.01 Long term (current) use of anticoagulants; Z85.118 Personal history of other malignant neoplasm of bronchus and lung; Z87.891 Personal history of nicotine dependence; Z68.20 Body mass index [BMI] 20.0-20.9, adult
CPT/HCPCS: 36415; 36600; 71045; 71046; 71275; 80048; 80053; 81001; 82803; 83605; 83735; 83880; 84100; 84132; 84145; 84439; 84443; 84484; 85018; 85025; 87040; 87070; 93005; 93308; 94640; 94660; 94668; 94760; 96365; 97110; 97116; 97161; 97530; 99285; A6213; J0692; J1940; J1956; J2020; J2060; J2405; J2543; J2930; J3370; J7030; J7060; Q9967